=== PATIENT | female | born 1930 | race Caucasian/White ===

== ENCOUNTER 2019-09-19 15:47 | Inpatient (IN) | payer MEDICARE, BC ==
[2019-09-19] MEDS ORDERED: Sodium Chloride 0.9% 10 ML Syringe FLUSH PRN (16:00)
[2019-09-19] MEDS ORDERED: Furosemide 40 MG/4 ML VIAL IVPUSH ONE (16:06)
--- NOTE | 2019-09-19 16:45 | CR ---
[id number] RAD/RAD Chest PA And Lateral EXAM: RAD Chest PA And Lateral CLINICAL DATA: HYPOXIA COMPARISON: CORRELATION IS MADE WITH THE EXAM OF OCTOBER 25, 2016 FINDINGS: Scarring is seen at the left lung base The lungs otherwise are clear but hyperaerated There is a kyphotic appearance of the chest The cardiomediastinal contour is stable IMPRESSION: NO PNEUMONIA OR EDEMA ABNORMALITY LEFT LUNG BASE LIKELY SCARRING Kyle Clark MD 09/19/19 5211 Thank you for allowing us to participate in the care of your patient.
[2019-09-19] MEDS ORDERED: Warfarin 5 MG Tab PO SCH (17:45)
[2019-09-19] MEDS: Carvedilol 6.25 MG Tab PO SCH (18:34)
[2019-09-19] MEDS: Gabapentin 100 MG Cap PO SCH (20:58)
[2019-09-19] MEDS: Acetaminophen 500 MG Tab PO SCH (20:59)
[2019-09-19] MEDS: Warfarin 5 MG Tab PO SCH (21:06)
[2019-09-20] MEDS ORDERED: Aluminum Hydroxide/Magnesium Hydroxide Susp 30 ML Cup PO PRN (00:13)
[2019-09-20] MEDS: Carvedilol 6.25 MG Tab PO SCH ×2 (07:57→17:59)
[2019-09-20] MEDS: Omeprazole 20 MG Cap.CR PO SCH (07:58)
[2019-09-20] MEDS: Cetirizine 10 MG Tab PO SCH (09:10)
[2019-09-20] MEDS: Acetaminophen 500 MG Tab PO SCH ×2 (09:11→22:04)
[2019-09-20] MEDS: Magnesium Oxide 500 MG Tab PO SCH (09:11)
[2019-09-20] MEDS: Lisinopril 10 MG Tab PO SCH (09:12)
--- NOTE | 2019-09-20 11:22 | PCM.PN ---
- General Info Date of Service: 09/20/19 Functional Status: Reports: Tolerating Diet, Urinating. Denies: Ambulating, New Symptoms, Incentive Spirometry - Review of Systems General: Reports: Weakness HEENT: Reports: No Symptoms Pulmonary: Denies: Shortness of Breath, Cough, Sputum Cardiovascular: Reports: Dyspnea on Exertion, Edema. Denies: Palpitations, Orthopnea Gastrointestinal: Reports: No Symptoms Genitourinary: Denies: Dysuria Skin: Denies: Dryness Neurological: Denies: Dizziness Psychiatric: Reports: No Symptoms - Patient Data Vitals - Most Recent: Last Vital Signs Temp 97.4 F 09/20/19 06:59 Pulse 86 09/20/19 07:57 Resp 16 09/20/19 06:59 BP 110/63 09/20/19 09:12 Pulse Ox 93 L 09/20/19 06:59 Weight - Most Recent: 169 lb 9 oz I&O - Last 24 Hours: Intake & Output 09/19/19 09/20/19 09/20/19 22:59 06:59 14:59 Intake Total 300 250 Output Total 2300 200 Balance -2000 50 Lab Results Last 24 Hours: Laboratory Results - last 24 hr 09/19/19 09/20/19 Range/Units 19:10 07:16 PT TNP TNP INR 3.0 H 2.5 H (0.9-1.1) Med Orders - Current: Current Medications Acetaminophen (Tylenol Extra Strength) 1,000 mg PO BID [facility] Last Admin: 09/20/19 09:11 Dose: 1,000 mg Al Hydroxide/Mg Hydroxide (Mag-Al Susp) 30 ml PO Q4H PRN PRN Reason: Heartburn Last Admin: 09/20/19 00:42 Dose: 30 ml Carvedilol (Coreg) 3.125 mg PO BIDMEALS [facility] Last Admin: 09/20/19 07:57 Dose: 3.125 mg Cetirizine HCl (Zyrtec) 10 mg PO DAILY [facility] Last Admin: 09/20/19 09:10 Dose: 10 mg Gabapentin (Neurontin) 100 mg PO BEDTIME [facility] Last Admin: 09/19/19 20:58 Dose: 100 mg Lisinopril (Prinivil) 10 mg PO DAILY [facility] Last Admin: 09/20/19 09:12 Dose: 10 mg Magnesium Oxide (Magnesium Oxide) 500 mg PO DAILY [facility] Last Admin: 09/20/19 09:11 Dose: 500 mg Omeprazole (Omeprazole) 20 mg PO ACBREAKFAST [facility] Last Admin: 09/20/19 07:58 Dose: 20 mg Sodium Chloride (Saline Flush) 10 ml FLUSH Q8HR PRN PRN Reason: keep vein open Last Admin: 09/19/19 16:54 Dose: 10 ml Warfarin Sodium (Coumadin) 5 mg PO DAILY@1800 [facility] Last Admin: 09/19/19 21:06 Dose: Not Given Discontinued Medications Furosemide (Lasix) 40 mg IVPUSH NOW ONE Stop: 09/19/19 16:07 Last Admin: 09/19/19 16:52 Dose: 40 mg Warfarin Sodium (Coumadin) 5 mg PO ASDIRECTED YENNY - Exam Quality Assessment: DVT Prophylaxis. No: Supplemental Oxygen General: Alert, Oriented, Cooperative, No Acute Distress Neck: No JVD Lungs: Clear to Auscultation, Normal Respiratory Effort. No: Decreased Breath Sounds Cardiovascular: Regular Rate, Irregular Rhythm. No: Murmurs GI/Abdominal Exam: Soft (Female) Exam: Deferred Back Exam: No: CVA Tenderness (L), CVA Tenderness (R) Extremities: Pedal Edema (1+) Peripheral Pulses: 2+: Radial (L), Radial (R) Skin: Warm Psy/Mental Status: Alert, Normal Affect, Normal Mood Sepsis Event Note - Evaluation Sepsis Screening Result: No Definite Risk - Focused Exam Vital Signs: Vital Signs Temp Pulse Pulse Resp BP BP Pulse Ox 09/20/19 09:12 110/63 09/20/19 07:57 86 120/79 09/20/19 06:59 97.4 F 74 16 106/71 93 L Date Exam was Performed: 09/20/19 Time Exam was Performed: 11:51 - Problem List Review Problem List Initiated/Reviewed/Updated: Yes - My Orders Last 24 Hours: My Active Orders 09/19/19 16:00 Patient Status [ADT] Routine Height and Weight [RC] 0700 Oxygen Therapy [RC] PRN Up With Assistance [RC] ASDIRECTED Up to Chair [RC] ASDIRECTED VTE/DVT Education [RC] PER UNIT ROUTINE Vital Signs [RC] 0300,0700,1100,1500,1900,2300 Sodium Chloride 0.9% [Saline Flush] 10 ml FLUSH Q8HR PRN Peripheral IV Insertion Adult [OM.PC] Routine Saline Lock Insert [OM.PC] Routine Resuscitation Status Routine 09/19/19 16:03 Intake and Output [RC] 1400,2200,0600 09/19/19 16:07 Bladder Scan [RC] ASDIRECTED 09/19/19 18:00 Consult to Case Management/Clinical Law Professor [CONS] Routine carvediloL [Coreg] 3.125 mg PO BIDMEALS 09/19/19 21:00 Acetaminophen [Tylenol Extra Strength] 1,000 mg PO BID Gabapentin [Neurontin] 100 mg PO BEDTIME 09/19/19 Dinner 2 Gram Sodium Diet [DIET] 09/20/19 07:30 Omeprazole 20 mg PO ACBREAKFAST 09/20/19 09:00 Cetirizine [ZyrTEC] 10 mg PO DAILY Lisinopril [Prinivil] 10 mg PO DAILY Magnesium Oxide 500 mg PO DAILY - Plan Plan:: History Summary: Warren Maguire is a 89yr female with a chief complaint of worsening shortness of breath, edema in her lower extremities, fatigue/weakness. Reason has been slowly declining over months due to her heart failure however is currently in assisted living and can no longer perform self ADLs, ambulate without significant assistance. Activities is to chair and sleeping, gets easily fatigue, Easily forgetful Patient does have stage 3/4 heart failure.She is on TRACI inhibitor 10 mg daily , Coreg 3.125 mg twice a day along with Zaroxolyn 2.5 mg Wednesday and Wednesday. Lasix 20 mg by mouth twice a day. he also has chronic atrial fibrillation with chronic anticoagulation of warfarin. She gets her INR managed with INR clinic. My last visit with her approximate 1 month ago I had Increased her lisinopril to 15 mg by mouth daily,target 20-30 mgiftolerable informed her Daily weights, Low sodium diet and then recommended long-term care due to comorbidities, debilitation, assistance, fall risk. Family is desiring to place her in long-term care. Cardiogram 2018 reveals EF 55 with basilar inferior wall segment hypokinetic. Great 3 left ventricular diastolic dysfunction with markedly dilated left and right atrium moderate to severe mitral regurgitation with a PFO [id number] Primary [facility] problems --HFpEF, combined systolic/diastolic, continue with TRACI inhibitor 10 mg, likely cannot tolerate targeting dose 20-30mg for heart failure at this time. Anticipate discontinuing Zaroxolyn and starting her on low-dose 12.5 mg Aldactone--potassium 5.0 right now will monitor this closely --Hypoxia --Deconditioning Secondary/stable problems --Atrial fibrillation, chronic/persistent, [id number] 5anticoagulation with Coumadin, INR therapeutic, --Dilated cardiomyopathy --Hypertension --Obesity --SIOBHAN Disposition overall plan --continue an inpatient status for ongoing yet gentle diuresis. Will need close electrolyte monitoring -- PT consult will be placed as anticipate discharge to LTC
[2019-09-20] MEDS ORDERED: Furosemide 40 MG/4 ML VIAL IVPUSH ONE (11:52)
[2019-09-20 12:30] LABS: ANION GAP 10.3 mmol/L (5-15); CHLORIDE,CL 99 mmol/L (98-115); SODIUM,NA 139 mmol/L (136-145)
[2019-09-20] MEDS: Warfarin 5 MG Tab PO SCH (17:58)
[2019-09-20] MEDS: Gabapentin 100 MG Cap PO SCH (22:04)
[2019-09-21] MEDS: Omeprazole 20 MG Cap.CR PO SCH (07:35)
[2019-09-21] MEDS: Carvedilol 6.25 MG Tab PO SCH ×2 (08:08→17:48)
[2019-09-21] MEDS: Magnesium Oxide 500 MG Tab PO SCH (08:58)
[2019-09-21] MEDS: Acetaminophen 500 MG Tab PO SCH ×2 (08:58→21:41)
[2019-09-21] MEDS: Cetirizine 10 MG Tab PO SCH (10:00)
--- NOTE | 2019-09-21 10:04 | PCM.PN ---
- General Info Date of Service: 09/21/19 Functional Status: Reports: Pain Controlled, Tolerating Diet, Urinating. Denies : Ambulating, New Symptoms - Review of Systems General: Reports: Weakness, Fatigue, Malaise. Denies: Fever Pulmonary: Reports: No Symptoms Cardiovascular: Reports: Edema Gastrointestinal: Reports: No Symptoms Skin: Denies: Dryness Neurological: Reports: Pre-Existing Deficit, Weakness. Denies: Confusion, Dizziness Psychiatric: Denies: Confusion - Patient Data Vitals - Most Recent: Last Vital Signs Temp 97.6 F 09/21/19 06:58 Pulse 89 09/21/19 08:08 Resp 20 09/21/19 06:58 BP 114/71 09/21/19 08:08 Pulse Ox 96 09/21/19 06:58 Weight - Most Recent: 171 lb I&O - Last 24 Hours: Intake & Output 09/20/19 09/21/19 09/21/19 22:59 06:59 14:59 Intake Total 560 0 Output Total 500 300 Balance 60 -300 Lab Results Last 24 Hours: Laboratory Results - last 24 hr 09/20/19 Range/Units 12:00 Sodium 139 (136-145) mmol/L Potassium 4.3 (3.3-5.3) mmol/L Chloride 99 (98-115) mmol/L Carbon Dioxide 34.0 H (21.0-32.0) mmol/L Anion Gap 10.3 (5-15) mmol/L BUN 19 (6-25) mg/dL Creatinine 0.76 (0.51-1.17) mg/dL Est Cr Clr Drug Dosing 46.98 mL/min Estimated GFR (MDRD) > 60 mL/min Glucose 76 (75 - 99) mg/dL Calcium 9.7 (8.7-10.3) mg/dL Med Orders - Current: Current Medications Acetaminophen (Tylenol Extra Strength) 1,000 mg PO BID [facility] Last Admin: 09/21/19 08:58 Dose: 1,000 mg Al Hydroxide/Mg Hydroxide (Mag-Al Susp) 30 ml PO Q4H PRN PRN Reason: Heartburn Last Admin: 09/20/19 00:42 Dose: 30 ml Carvedilol (Coreg) 3.125 mg PO BIDMEALS [facility] Last Admin: 09/21/19 08:08 Dose: 3.125 mg Cetirizine HCl (Zyrtec) 10 mg PO DAILY [facility] Last Admin: 09/20/19 09:10 Dose: 10 mg Gabapentin (Neurontin) 100 mg PO BEDTIME [facility] Last Admin: 09/20/19 22:04 Dose: 100 mg Lisinopril (Prinivil) 10 mg PO DAILY [facility] Last Admin: 09/20/19 09:12 Dose: 10 mg Magnesium Oxide (Magnesium Oxide) 500 mg PO DAILY [facility] Last Admin: 09/21/19 08:58 Dose: 500 mg Omeprazole (Omeprazole) 20 mg PO ACBREAKFAST [facility] Last Admin: 09/21/19 07:35 Dose: 20 mg Sodium Chloride (Saline Flush) 10 ml FLUSH Q8HR PRN PRN Reason: keep vein open Last Admin: 09/19/19 16:54 Dose: 10 ml Warfarin Sodium (Coumadin) 5 mg PO DAILY@1800 [facility] Last Admin: 09/20/19 17:58 Dose: 5 mg Discontinued Medications Furosemide (Lasix) 40 mg IVPUSH NOW ONE Stop: 09/19/19 16:07 Last Admin: 09/19/19 16:52 Dose: 40 mg Furosemide (Lasix) 20 mg IVPUSH NOW ONE Stop: 09/20/19 11:53 Last Admin: 09/20/19 13:01 Dose: 20 mg Warfarin Sodium (Coumadin) 5 mg PO ASDIRECTED YENNY - Exam Quality Assessment: No: Supplemental Oxygen General: Alert, Oriented, Cooperative, No Acute Distress Neck: No JVD Lungs: Clear to Auscultation, Normal Respiratory Effort Cardiovascular: Regular Rate, Regular Rhythm. No: Tachycardia GI/Abdominal Exam: Normal Bowel Sounds, Soft (Female) Exam: Deferred Extremities: Pedal Edema, Redness. No: Increased Warmth Peripheral Pulses: 2+: Radial (L), Radial (R) Skin: Rash (Bilateral lower extremity edema lichen) Neurological: Normal Speech Psy/Mental Status: Alert, Normal Mood Sepsis Event Note - Evaluation Sepsis Screening Result: No Definite Risk - Focused Exam Vital Signs: Vital Signs Temp Pulse Pulse Resp BP BP Pulse Ox 09/21/19 08:08 89 114/71 09/21/19 06:58 97.6 F 72 20 131/85 96 09/21/19 02:58 97.6 F 72 20 112/73 95 09/20/19 22:54 97.9 F 78 20 120/79 97 Date Exam was Performed: 09/21/19 Time Exam was Performed: 09:53 - Problem List Review Problem List Initiated/Reviewed/Updated: Yes - My Orders Last 24 Hours: My Active Orders 09/20/19 09:00 Cetirizine [ZyrTEC] 10 mg PO DAILY Lisinopril [Prinivil] 10 mg PO DAILY Magnesium Oxide 500 mg PO DAILY 09/20/19 11:45 Consult to Physical Therapy [PT Evaluation and Treatment] [CONS] Routine - Plan Plan:: History Summary: Warren Maguire is a 89yr female with a chief complaint of worsening shortness of breath, edema in her lower extremities, fatigue/weakness. Reason has been slowly declining over months due to her heart failure however is currently in assisted living and can no longer perform self ADLs, ambulate without significant assistance. Activities is to chair and sleeping, gets easily fatigue, Easily forgetful Patient does have stage 3/4 heart failure.She is on TRACI inhibitor 10 mg daily , Coreg 3.125 mg twice a day along with Zaroxolyn 2.5 mg Wednesday and Wednesday. Lasix 20 mg by mouth twice a day. he also has chronic atrial fibrillation with chronic anticoagulation of warfarin. She gets her INR managed with INR clinic. My last visit with her approximate 1 month ago I had Increased her lisinopril to 15 mg by mouth daily,target 20-30 mgiftolerable informed her Daily weights, Low sodium diet and then recommended long-term care due to comorbidities, debilitation, assistance, fall risk. Family is desiring to place her in long-term care. Cardiogram 2018 reveals EF 55 with basilar inferior wall segment hypokinetic. Great 3 left ventricular diastolic dysfunction with markedly dilated left and right atrium moderate to severe mitral regurgitation with a PFO [id number] Primary [facility] problems --HFpEF, combined systolic/diastolic, continue with TRACI inhibitor 10 mg, likely cannot tolerate targeting dose 20-30mg for heart failure at this time. start her on low-dose 12.5 mg Aldactone. Monitor potassium closely. --Hypoxia, resolved, now on room air --Deconditioning, PT consultation, see below Secondary/stable problems --Atrial fibrillation, chronic/persistent, [id number] CVR, anticoagulation with Coumadin, INR therapeutic, --Dilated cardiomyopathy --Osteoporosis, she is due for her Prolia --Hypertension --Obesity --SIOBHAN Disposition overall plan --continue an inpatient status, add Aldactone low-dose, potassium 4.3. --Anticipate discharge to LTC tomorrow --Patient is high fall risk due to contractures and weakness of B LEs significantly impacts her stability and gait. She ambulates with a slower pace when turning in the halls. She doesn't have knee pain at rest, but this increases the more she is up and walking. She has increased stance time on each leg with excessive knee and hip flexion moments. She would benefit from therapy to improve balance and strength. Her SaO2 levels are improved above admission baseline >92% at all times on room air; she seems very deconditioned and SOB more so due to CHF.
[2019-09-21] MEDS: Lisinopril 10 MG Tab PO SCH (10:33)
[2019-09-21] MEDS: Spironolactone 25 MG Tab PO SCH (11:13)
[2019-09-21] MEDS: Furosemide 40 MG Tab PO SCH (11:37)
[2019-09-21] MEDS: Warfarin 5 MG Tab PO SCH (17:48)
[2019-09-21] MEDS: Gabapentin 100 MG Cap PO SCH (21:41)
[2019-09-22] MEDS: Omeprazole 20 MG Cap.CR PO SCH (07:33)
[2019-09-22] MEDS: Spironolactone 25 MG Tab PO SCH (08:16)
[2019-09-22] MEDS: Magnesium Oxide 500 MG Tab PO SCH (08:16)
[2019-09-22] MEDS: Furosemide 40 MG Tab PO SCH (08:17)
[2019-09-22] MEDS: Lisinopril 10 MG Tab PO SCH (08:17)
[2019-09-22] MEDS: Cetirizine 10 MG Tab PO SCH (08:17)
[2019-09-22] MEDS: Carvedilol 6.25 MG Tab PO SCH (08:18)
[2019-09-22 08:19] VITALS: BP 102/63; PULSE 77
[2019-09-22] MEDS: Acetaminophen 500 MG Tab PO SCH (08:19)
[2019-09-22] MEDS ORDERED: Metolazone 2.5 MG Tab PO SCH (10:00)
--- NOTE | 2019-09-22 13:18 | PCM.DCSUM1 ---
Discharge Summary - Hospital Course Diagnosis: Stroke: No - Discharge Data Discharge Date: 09/22/19 Discharge Disposition: DC/Tfer to SNF 03 Condition: Fair - Referral to Home Health Primary Care Physician: Francis Bailey NP - Patient Summary/Data Consults: Consultations 09/19/19 18:00 Consult to Case Management/Mold Stripper [CONS] Routine 09/20/19 11:45 Consult to Physical Therapy [PT Evaluation and Treatment] [CONS] Routine - Patient Instructions Diet: Low Sodium Activity: As Tolerated, Cough & Deep Breathe, Elevate Extremity Driving: Do Not Drive Showering/Bathing: May Shower Notify Provider of: Swelling and Redness - Discharge Plan *PRESCRIPTION DRUG MONITORING PROGRAM REVIEWED*: Not Applicable *COPY OF PRESCRIPTION DRUG MONITORING REPORT IN PATIENT ARLETH: Not Applicable Prescriptions/Med Rec: Spironolactone [Aldactone] 12.5 mg PO DAILY #30 tablet Home Medications: Home Meds Denosumab [Prolia] 1 ml IM ASDIRECTED 09/13/14 [History] Calcium Carbonate 1 tab PO BID PRN 01/28/16 [History] Cholecalciferol (Vitamin D3) [D3-2000] 2,000 unit PO DAILY 06/18/16 [History] Carvedilol [Coreg] 3.125 mg PO BIDMEALS 11/09/16 [History] Furosemide [Lasix] 40 mg PO DAILY 11/09/16 [History] Iron Polysaccharides Complex [Ferrex 150] 150 mg PO DAILY@1200 11/09/16 [History ] Magnesium Oxide [Magnesium] 400 mg PO DAILY 11/09/16 [History] Multivitamin [Daily Multiple Vitamin] 1 tab PO DAILY 11/09/16 [History] Acetaminophen [Tylenol Extra Strength] 1,000 mg PO BID 09/19/19 [History] Capsaicin [Zostrix 0.025% Crm] 60 gm TP QID PRN 09/19/19 [History] Carboxymethylcellulose Sodium [Refresh Celluvisc] 1 each EYEBOTH ASDIRECTED PRN 09/19/19 [History] Cetirizine [ZyrTEC] 10 mg PO DAILY 09/19/19 [History] Gabapentin [Neurontin] 100 mg PO BEDTIME 09/19/19 [History] Lisinopril [Prinivil] 10 mg PO DAILY 09/19/19 [History] Omeprazole Magnesium [Prilosec Otc] 20 mg PO DAILY 09/19/19 [History] Warfarin Sodium [Jantoven] 5 mg PO ASDIRECTED 09/19/19 [History] metOLazone [Zaroxolyn] 5 mg PO TUFR 09/19/19 [History] Spironolactone [Aldactone] 12.5 mg PO DAILY #30 tablet 09/22/19 [Rx] Referrals: [facility] [Outside] - Discharge Summary/Plan Comment DC Time >30 min.: Yes Discharge Summary/Plan Comment: Final Dx. --HFpEF, combined systolic/diastolic, TRACI inhibitor 10 mg, Added Aldactone 12.5mg day prior to DC. likely cannot tolerate targeting dose 20-30mg for heart failure at this time. --Hypoxia, resolved --Deconditioning Chronic/stable problems --Atrial fibrillation, chronic/persistent, [id number] 5anticoagulation with Coumadin, INR therapeutic, --Dilated cardiomyopathy --Hypertension --Obesity --SIOBHAN History Summary: Warren Maguire is a 89yr female with a chief complaint of worsening shortness of breath, edema in her lower extremities, fatigue/weakness. Reason has been slowly declining over months due to her heart failure however is currently in assisted living and can no longer perform self ADLs, ambulate without significant assistance. Activities is to chair and sleeping, gets easily fatigue, Easily forgetful. Patient does have stage 3/4 heart failure. She is on TRACI inhibitor 10 mg daily, Coreg 3.125 mg twice a day along with Zaroxolyn 2.5 mg Wednesday and Wednesday. Lasix 20 mg by mouth twice a day. he also has chronic atrial fibrillation with chronic anticoagulation of warfarin. She gets her INR managed with INR clinic. My last visit with her approximate 1 month ago I had Increased her lisinopril to 15 mg by mouth daily,target 20-30 mgiftolerable informed her Daily weights, Low sodium diet and then recommended long-term care due to comorbidities, debilitation, assistance, fall risk. Family is desiring to place her in long-term care. Hospital course Her hospital course went well, she was gently diuresed however had significant output on day 1, she lost a total of 3 pounds, she had no side effects or adverse reactions to any medications and/or treatments. She had much improvement in her bilateral lower extremity edema. Her hypoxia improved and she was titrated down to room air. I started her on Aldactone 12.5 mg by mouth daily. Her potassium did improve down from 5.0 at [facility] to 4.3. Physical therapy had evaluated the patient and was quite deconditioned with unsteady gait. S chronic atrial fibrillation however she had no RVR. INR level was 2.5 on discharge. Cardiogram 2018 reveals EF 55 with basilar inferior wall segment hypokinetic. Great 3 left ventricular diastolic dysfunction with markedly dilated left and right atrium moderate to severe mitral regurgitation with a PFO [id number] Medication changes/adjustments upon discharge --Aldactone 12.5 mg by mouth daily Disposition overall plan --discharge to LTC --PT/OT --BMP to monitor potassium level in 5 days --Consultation placed for INR clinic - General Info Functional Status: Reports: Pain Controlled, Tolerating Diet. Denies: Ambulating, New Symptoms - Review of Systems General: Reports: No Symptoms HEENT: Reports: No Symptoms Pulmonary: Denies: Shortness of Breath, Pleuritic Chest Pain, Cough, Sputum Cardiovascular: Reports: Edema. Denies: Chest Pain, Orthopnea, PND Gastrointestinal: Denies: Abdominal Pain Skin: Denies: Dryness Neurological: Denies: Confusion Psychiatric: Denies: Confusion, Agitation - Patient Data Vitals - Most Recent: Last Vital Signs Temp 97.7 F 09/22/19 07:00 Pulse 77 09/22/19 08:18 Resp 20 09/22/19 07:00 BP 102/63 09/22/19 08:18 Pulse Ox 94 L 09/22/19 07:05 Weight - Most Recent: 171 lb 4 oz I&O - Last 24 hours: Intake & Output 09/21/19 09/22/19 09/22/19 22:59 06:59 14:59 Intake Total 450 100 Output Total 950 700 Balance -500 -600 Med Orders - Current: Current Medications Acetaminophen (Tylenol Extra Strength) 1,000 mg PO BID [facility] Last Admin: 09/22/19 08:19 Dose: 1,000 mg Al Hydroxide/Mg Hydroxide (Mag-Al Susp) 30 ml PO Q4H PRN PRN Reason: Heartburn Last Admin: 09/20/19 00:42 Dose: 30 ml Carvedilol (Coreg) 3.125 mg PO BIDMEALS [facility] Last Admin: 09/22/19 08:18 Dose: 3.125 mg Cetirizine HCl (Zyrtec) 10 mg PO DAILY [facility] Last Admin: 09/22/19 08:17 Dose: 10 mg Furosemide (Lasix) 40 mg PO DAILY [facility] Last Admin: 09/22/19 08:17 Dose: 40 mg Gabapentin (Neurontin) 100 mg PO BEDTIME [facility] Last Admin: 09/21/19 21:41 Dose: 100 mg Lisinopril (Prinivil) 10 mg PO DAILY [facility] Last Admin: 09/22/19 08:17 Dose: 10 mg Magnesium Oxide (Magnesium Oxide) 500 mg PO DAILY [facility] Last Admin: 09/22/19 08:16 Dose: 500 mg Metolazone (Zaroxolyn) 5 mg PO TuFr@1000 [facility] Last Admin: 09/22/19 10:55 Dose: 5 mg Omeprazole (Omeprazole) 20 mg PO ACBREAKFAST [facility] Last Admin: 09/22/19 07:33 Dose: 20 mg Sodium Chloride (Saline Flush) 10 ml FLUSH Q8HR PRN PRN Reason: keep vein open Last Admin: 09/19/19 16:54 Dose: 10 ml Spironolactone (Aldactone) 12.5 mg PO DAILY [facility] Last Admin: 09/22/19 08:16 Dose: 12.5 mg Warfarin Sodium (Coumadin) 5 mg PO DAILY@1800 [facility] Last Admin: 09/21/19 17:48 Dose: 5 mg Discontinued Medications Furosemide (Lasix) 40 mg IVPUSH NOW ONE Stop: 09/19/19 16:07 Last Admin: 09/19/19 16:52 Dose: 40 mg Furosemide (Lasix) 20 mg IVPUSH NOW ONE Stop: 09/20/19 11:53 Last Admin: 09/20/19 13:01 Dose: 20 mg Warfarin Sodium (Coumadin) 5 mg PO ASDIRECTED [facility] - Exam Quality Assessment: Denies: Supplemental Oxygen General: Reports: Alert, Oriented, Cooperative, No Acute Distress Neck: Reports: No JVD Lungs: Reports: Clear to Auscultation, Normal Respiratory Effort Cardiovascular: Reports: Irregular Rhythm GI/Abdominal Exam: No Distention Extremities: Pedal Edema Skin: Denies: Rash Neurological: Reports: No New Focal Deficit Psy/Mental Status: Reports: Alert, Normal Affect, Normal Mood
== END 2019-09-22 13:10 | DRG 292 ==
LOC: KA.MS 16:00
PROVIDERS: ADMIT Nurse Practitioner Family; ATTEND Family Medicine
DX: I11.0 Hypertensive heart disease with heart failure (principal); I48.20 Chronic atrial fibrillation, unspecified; I50.43 Acute on chronic combined systolic (congestive) and diastolic (congestive) heart failure; I42.0 Dilated cardiomyopathy; E66.9 Obesity, unspecified; D50.9 Iron deficiency anemia, unspecified; K21.9 Gastro-esophageal reflux disease without esophagitis; G47.33 Obstructive sleep apnea (adult) (pediatric); M81.0 Age-related osteoporosis without current pathological fracture; D86.0 Sarcoidosis of lung; Z96.641 Presence of right artificial hip joint; D69.6 Thrombocytopenia, unspecified; Z98.49 Cataract extraction status, unspecified eye; Z90.49 Acquired absence of other specified parts of digestive tract; Z90.89 Acquired absence of other organs; Z88.6 Allergy status to analgesic agent; Z88.1 Allergy status to other antibiotic agents; Z79.899 Other long term (current) drug therapy; Z79.01 Long term (current) use of anticoagulants; Z85.038 Personal history of other malignant neoplasm of large intestine; Z98.51 Tubal ligation status; Z68.27 Body mass index [BMI] 27.0-27.9, adult
CPT/HCPCS: 36416; 51798; 71046; 80048; 85610; 97110-GP; 97162-GP; A9270-GY; J1940